=== PATIENT | male | born 1990 | race Caucasian/White ===

== ENCOUNTER 2017-10-30 19:36 | Emergency (ER) | payer SELFPAY ==
[~2017-10-30] VITALS: Ht 167.6 cm; Wt 97.9 kg
[2017-10-30] MEDS ORDERED: KEFLEX500 MG PO (21:11)
[2017-10-30] MEDS ORDERED: BACTRIM,SEPT1 TABLET PO (21:11)
[2017-10-30] MEDS ORDERED: MOTRIN800 MG PO (21:11)
[2017-10-30] MEDS ORDERED: NORCO 7.5/321 TABLET PO (21:11)
[2017-10-30 21:23] VITALS: BP 122/76
== END 2017-10-30 21:24 | disposition home or self-care (01) ==
LOC: EME 19:36
PROC: 0H98XZZ Drainage of Buttock Skin, External Approach (ICD-10-PCS; principal; 2017-10-30)
DX: L05.91 Pilonidal cyst without abscess (principal); L03.317 Cellulitis of buttock; L02.31 Cutaneous abscess of buttock; F17.200 Nicotine dependence, unspecified, uncomplicated
CPT/HCPCS: 99281; 99284; J3010

== ENCOUNTER 2017-11-01 17:51 | Emergency (ER) | payer SELFPAY ==
[~2017-11-01] VITALS: Ht 167.6 cm; Wt 94.3 kg
[~2017-11-01 17:51] MED LIST: BACTRIM,SEPT1 TABLET PO; KEFLEX500 MG PO; MOTRIN800 MG PO; NORCO 7.5/321 TABLET PO
[2017-11-01 20:46] VITALS: BP 121/65
== END 2017-11-01 20:47 | disposition home or self-care (01) ==
LOC: EME 17:51
DX: Z48.00 Encounter for change or removal of nonsurgical wound dressing (principal); L05.01 Pilonidal cyst with abscess; F17.200 Nicotine dependence, unspecified, uncomplicated
CPT/HCPCS: 99281; 99283